=== PATIENT | female | born 1970 ===

== ENCOUNTER 2025-01-05 09:00 | Day surgery (SDC) | payer OTHER ==
[2024-12-29 09:56] LABS: BASO % 0.6 % (0.1-1.2); EOS # 0.10 (0.04-0.54); EOS % 1.3 % (0.7-7.0); LYMPH # 1.73 (1.18-3.74); LYMPH % 22.2 % (19.3-53.1); MEAN PLATELET VOLUME 11.90 fl (9.4-12.4); MONO # 0.44 (0.24-0.82); MONO % 5.7 % (4.7-12.5); NEUT # 5.45 (1.56-6.13); NEUT % 70.1 % (34.0-71.1); RED CELL DISTRIBUTION WIDTH 13.2 % (11.6-14.4)
[2024-12-29 09:59] LABS: URINE APPEARANCE Clear; URINE BACTERIA 1797.5 uL (0.0-1933); URINE BILIRRUBIN Negative (NEGATIVE); URINE BLOOD Large; URINE COLOR Yellow; URINE EPITHELIAL CELLS 42.5 uL (0.0-38.8); URINE GLUCOSE Negative (NEGATIVE); URINE KETONE Negative (NEGATIVE); URINE LEUKOCYTE Trace; URINE NITRATE Negative; URINE PROTEIN 30 (NEGATIVE); URINE RBC 1119.9 uL (0.0-20.8); URINE UROBILINOGEN 1.0 E.U./dl; URINE WBC 22.1 uL (0.0-23.2)
[2024-12-29 10:07] VITALS: BP 143/87
[2024-12-29 10:23] LABS: INR 0.99
[2024-12-29 10:29] LABS: URINE CAST 0.00 uL (0.0-1.40)
[2024-12-29 11:05] LABS: ALT/SGPT 115.0 U/L (12-78); AST/SGOT 27.0 U/L (15-37); BILIRUBIN TOTAL 0.52 mg/dL (0.3-1.2); BUN CREA RATIO 8.0 (7.0-25.0); CREATININE SERUM 1.03 mg/dL (0.55-1.02); GFR 55.43; GLOBULINA 3.5 G/DL (2.4-3.5); GLUCOSE FASTING 97.0 mg/dL (65-100); OSMOLALITY SERUM 279.0 MOSM/KG (275-295)
[~2025-01-05] VITALS: Ht 165.1 cm; Wt 83.0 kg
[2025-01-05] MEDS ORDERED: POVIDONE-IODINE 118 ML BOTT TOP ONE (10:55)
== END 2025-01-05 16:00 | disposition home or self-care (01) ==
LOC: CIR.AMB 09:00
PROVIDERS: ATTEND Student in an Organized Health Care Education/Training Program
DX: N95.0 Postmenopausal bleeding (principal); D25.9 Leiomyoma of uterus, unspecified; Z88.0 Allergy status to penicillin; Z91.018 Allergy to other foods